=== PATIENT | male | born 1980 | race Hispanic/Latino ===

== ENCOUNTER 2019-09-15 10:17 | Emergency (ER) | payer SELFPAY ==
[2019-09-15] MEDS ORDERED: Ketorolac Tromethamine 60 MG/2 ML VIAL ONE (13:57)
--- NOTE | 2019-09-15 14:19 | CT ---
CT Brain WO Con: 09/15/2019 1:53 PM CLINICAL HISTORY: Headache. IMAGING TECHNIQUE: Multiple CT images were obtained of the brain without IV contrast. COMPARISON: None. FINDINGS: Brain: No acute infarct or hemorrhage is evident. No midline shift. Ventricles: Normal. No hydrocephalus.. Skull: Intact.. Visualized Paranasal sinuses: Clear.. Mastoid air cells:Clear. Extracranial soft tissues:Normal. IMPRESSION: No acute intracranial abnormality.
== END 2019-09-15 14:34 | disposition home or self-care (01) ==
LOC: ERS 10:17
DX: R51 Headache (principal); F17.210 Nicotine dependence, cigarettes, uncomplicated
CPT/HCPCS: 70450; 96372; J1885

== ENCOUNTER 2020-03-31 18:13 | Emergency (ER) | payer OTHER, SELFPAY ==
[2020-04-01 15:09] LABS: SARS-CoV-2 MS2 Positive; SARS-CoV-2 N Gene Positive; SARS-CoV-2 S Gene Positive; SARS-CoV-2 orf1ab Positive
== END 2020-03-31 18:35 | disposition home or self-care (01) ==
LOC: ERS 18:13
DX: U07.1 COVID-19 (principal)
CPT/HCPCS: 87635; 99283; U0003

== ENCOUNTER 2022-02-14 12:40 | Emergency (ER) | payer OTHER, SELFPAY ==
[2022-02-14] MEDS ORDERED: Boostrix 0.5 ML (Tdap) VIAL ONE (14:22)
[2022-02-14] MEDS ORDERED: Ketorolac Tromethamine 30 MG/ML VIAL ONE (15:00)
[2022-02-14] MEDS ORDERED: Xylocaine 1% w/ Epi 1:100K 10 ML VIAL ONE (15:00)
== END 2022-02-14 15:46 | disposition home or self-care (01) ==
LOC: ERS 12:40
DX: S61.412A Laceration without foreign body of left hand, initial encounter (principal); Z23 Encounter for immunization; W26.8XXA Contact with other sharp object(s), not elsewhere classified, initial encounter
CPT/HCPCS: 12001; 90471; 90715; 96372; J1885